=== PATIENT | female | born 1970 | race Two or more races ===

== ENCOUNTER 2017-12-31 10:29 | Outpatient (CLI) | payer OTHER | END 2017-12-31 10:30 | disposition home or self-care (01) | LOC: SONOGRAMA 10:29 | DX: E04.8 Other specified nontoxic goiter (principal) ==

== ENCOUNTER 2018-07-11 10:35 | Outpatient (CLI) | payer OTHER | END 2018-07-11 10:55 | disposition home or self-care (01) | LOC: MAMO-SONO 10:35 | DX: Z12.31 Encounter for screening mammogram for malignant neoplasm of breast (principal) ==